=== PATIENT | female | born 1950 | race Caucasian/White ===

== ENCOUNTER 2023-03-24 12:25 | Emergency (ER) | payer MEDICARE, MEDICAID, SELFPAY ==
[2023-03-24 12:27] VITALS: BP 204/92; PULSE 73; RESP 15; TEMP 36.2; O2SAT 100; BMI 24.0
--- NOTE | 2023-03-24 13:38 | EDS_ITS ---
HPI <BRENDAN Hines - Last Filed: 03/24/23 14:18> History of Present Illness Chief Complaint: Med Refill Narrative Narrative: Patient is a 72-year-old female with history of bipolar, type 2 diabetes who presents to the emergency department for medication refill. Patient states that she takes Levemir 16 units at night, she states that her pen was in the fridge it was too cold and is no longer working. She is requesting a new Levemir insulin pen. Patient does know that her blood pressure is high, she states this happens when she was the hospital. She denies any chest pain or shortness of breath. Patient states she is having difficulty following up with her primary care provider. She was in a rehab facility secondary to a fractured left hip, she denies any other complaints. PFSH <BRENDAN Hines - Last Filed: 03/24/23 14:18> [facility] Home Medications amlodipine 5 mg tablet 5 mg PO DAILY #30 tabs 03/24/23 [Rx Last Taken Unknown] insulin detemir U-100 100 unit/mL (3 mL) subcutaneous pen (Levemir FlexPen) 16 unit (0.16 mL) subcut QHS 93 days #14.88 mL 03/24/23 [Rx Last Taken Unknown] Allergy/AdvReac Type Severity Reaction Status Date / Time Penicillins Allergy Mild Nausea/Vom/ Verified 03/24/23 12:27 Diarrhea Social History Smoking Status: Never smoker ROS <BRENDAN Hines - Last Filed: 03/24/23 14:18> ROS ED ROS Narrative Constitutional: Negative for fever, chills, weight loss, weakness Eyes: Negative for vision loss, vision change, double vision ENT: Negative for any sore throat, ear pain, congestion Cardiovascular: Negative for any chest pain, tightness, palpitations Respiratory: Negative for any cough, sputum production, hemoptysis, dyspnea, dyspnea on exertion, orthopnea Gastrointestinal: Negative for any abdominal pain, nausea, vomiting, diarrhea, constipation, blood in stool, blood in vomit : Negative for any urinary frequency, dysuria, retention, blood in urine Muscle skeletal: Negative for any myalgias, arthralgias, neck pain, back pain Neurological: Negative for any headache, syncope, numbness or tingling, dizziness Skin: Negative for any rashes, lumps, itching, abrasions, lacerations Psychiatric: Negative for any depression, anxiety, stress, suicidal ideation, homicidal ideation Hematologic: Negative for any easy bruising, excessive bruising, easy bleeding Allergies: Negative for any eczema, hives, rash EXAM <Coy StylesBRENDAN jimenez - Last Filed: 03/24/23 14:18> Physical Exam Narrative Exam Narrative: Vital signs reviewed. Patient does show some elevated blood pressure. Patient states she is not on any blood pressure medicine HEET: Head normocephalic atraumatic, TMs clear bilaterally. Posterior pharynx is clear, moist mucous membranes. Nares clear bilaterally. Neck: Supple with no lymphadenopathy or tenderness. No signs of meningismus. Cardiac: Regular rate and rhythm no murmurs gallops or rubs, equal peripheral pulses bilaterally. Respiratory: Lungs clear to auscultation bilaterally. No chest tenderness. Abdomen: Soft, nontender, nondistended. No abdominal bruit or pulsatile masses. No hepatosplenomegaly Extremities: No peripheral edema, no signs of gross trauma or deformity. Active full range of motion of all extremities. Neuro: Cranial nerves II through XII intact, no focal neurological deficits. Skin: Clean dry and intact with no rash, purpura, petechiae, vesicles or pustules. Backs/flank: No CVA tenderness, no midline spinal tenderness, no deformity. Psych: Normal mood and affect. No SI, HI or acute psychosis. Const Vital Signs: 03/24/23 12:27 03/24/23 13:31 03/24/23 14:17 Temperature 97.1 F L Temperature Source Temporal Pulse Rate 73 Respiratory Rate 15 Respiratory Effort Normal Non-Labored Respiratory Pattern Normal Blood Pressure 204/92 H 185/88 H Blood Pressure Mean 129 120 Pulse Ox 100 Oxygen Delivery Method Room Air 03/24/23 14:31 Temperature Temperature Source Pulse Rate 89 Respiratory Rate 16 Respiratory Effort Respiratory Pattern Blood Pressure 186/85 H Blood Pressure Mean 118 Pulse Ox 97 Oxygen Delivery Method <Dr. Raul Driver, - Last Filed: 03/24/23 16:31> Physical Exam Const Vital Signs: 03/24/23 12:27 03/24/23 13:31 03/24/23 14:17 Temperature 97.1 F L Temperature Source Temporal Pulse Rate 73 Respiratory Rate 15 Respiratory Effort Normal Non-Labored Respiratory Pattern Normal Blood Pressure 204/92 H 185/88 H Blood Pressure Mean 129 120 Pulse Ox 100 Oxygen Delivery Method Room Air 03/24/23 14:31 Temperature Temperature Source Pulse Rate 89 Respiratory Rate 16 Respiratory Effort Respiratory Pattern Blood Pressure 186/85 H Blood Pressure Mean 118 Pulse Ox 97 Oxygen Delivery Method [facility] <Coy YanBRENDAN velasquez - Last Filed: 03/24/23 14:18> [facility] Lab Data Labs: Laboratory Results - last 24 hr 03/24/23 13:28 POC Glucose 224 H Treatment and Re-Evaluation :: Patient is alert and oriented, vital signs show hypertension, patient be given 5 mg of by mouth amlodipine. I spoke with the patient at length. Patient is here for medication refill, Levemir. Patient is not following up with a PCP like she is supposed to. Patient does have multiple excuses why she is unable to. Patient educated regarding insulin storage. I will write her for Levemir. Patient will also receive a prescription for amlodipine secondary to the elevated blood pressure today. Her blood sugar was 224. Differential diagnose includes medication noncompliance, hyperglycemia, DKA, hypertensive emergency. However patient has no headache, she has no chest pain or shortness of breath. Patient's blood sugar is 224, she has been a diabetic for 25 years, she states that this is not that high for her. Patient will be written for a Levemir pen, as well as amlodipine 5 mg. I gave her 2 different primary care providers to follow-up with. I told her that is her responsibility follow-up with a primary care provider, she verbally understands <Dr. Raul Driver DO - Last Filed: 03/24/23 16:31> [facility] Narrative Medical decision making narrative: I have personally performed a face to face assessment of the patient and have reviewed the MARCELINO Note. I performed a substantive portion of the visit including all aspects of the following. My castillo findings include: History: Patient presents for medication refill. Patient states that she needs a refill of her Levemir insulin. Patient states that her refrigerator was too cold and her Levemir pen no longer works. Patient denies any polyuria or polydipsia. Patient denies any fevers or chills. Patient denies any chest pain or shortness of breath. Patient denies any nausea or vomiting. Patient states that whenever she goes to an emergency department, her blood pressure becomes elevated. Patient states that when she goes home it goes back to normal. Exam: Vital signs are stable except for elevated blood pressure 204/92. Patient is afebrile. Patient is in no acute distress. Oral mucosa is pink and moist. Neck is supple. Trachea is midline. There is no JVD. Heart was regular rate and rhythm. Lungs are clear and equal bilaterally. Abdomen is soft. Bowel sounds are normal. There is no tenderness. Cranial nerves II through XII are intact. There are no focal motor or sensory deficits noted. Medical Decision Making: Patient was given a dose of amlodipine. Patient was given a prescription for amlodipine and Levemir. Patient was instructed to continue to monitor her blood sugars at home. Patient was instructed to follow- up with her primary care physician in 5 to 7 days. Patient was instructed to return if worse in any way. Patient understood and was agreeable with the plan. All questions were answered. Lab Data Labs: Laboratory Results - last 24 hr 03/24/23 13:28 POC Glucose 224 H Discharge Plan Triage Chief Complaint: Med Refill ED Midlevel Provider: Coy Sargent ED Provider: Raul Driver Dx/Rx/DC Orders Clinical Impression: History of medication noncompliance, Type 2 diabetes mellitus, Hypertension Instructions: Controlling High Blood Pressure, Diabetes Manage Stress, Blood Sugar Check Steps, Blood Pressure Check Steps Prescriptions: New amlodipine 5 mg tablet 5 mg PO DAILY Qty: 30 1RF Levemir FlexPen 100 unit/mL (3 mL) insulin pen 16 unit subcut QHS 93 Days Qty: 14.88 0RF Primary Care Provider: Myriam Orosco Referrals: Sharlene Baig MD [Med Staff - Active Staff] - Grace Baig MD [Med Staff - Active Staff] - Activity Restrictions/Additional Instructions: You need to follow-up with her primary care provider. You were given Levemir pen for 93 days, as well as amlodipine for 2 months. You need to return for any worsening symptoms. Disposition Disposition: Home, Self Care Discharge Date/Time: 03/24/23 14:32
[2023-03-24 13:47] LABS: Bedside Glucose 224 mg/dL (74-106)
[2023-03-24 14:17] VITALS: BP 185/88
[2023-03-24] MEDS: amLODIPine 5 MG Tablet PO (14:30)
[2023-03-24 14:31] VITALS: BP 186/85; PULSE 89; RESP 16; O2SAT 97
== END 2023-03-24 14:32 | disposition home or self-care (01) ==
LOC: ED 14:30
PROVIDERS: Emergency Provider Emergency Medicine; PCP Nurse Practitioner Family; Visit Provider Emergency Medicine
DX: Z76.0 Encounter for issue of repeat prescription (principal); E11.9 Type 2 diabetes mellitus without complications; I10 Essential (primary) hypertension
CPT/HCPCS: 82962; 99282